=== PATIENT | female | born 1970 | race Caucasian/White ===

== ENCOUNTER 2016-12-01 17:16 | Inpatient (IN) | payer MEDICAID ==
[~2016-12-01] VITALS: Ht 134.6 cm; Wt 79.8 kg
[~2016-12-01 17:16] MED LIST: IOHEXOL-300 100 ML BOTTLE ONE; SODIUM CHLORIDE 0.9% 10ML VIAL ONE
[2016-12-01] MEDS ORDERED: MORPHINE SULFATE 4 MG/ML CPJ (NOT FOR IM USE) IV STA (17:36)
[2016-12-01] MEDS ORDERED: ONDANSETRON HCL 4MG/2ML VIAL IV STA (17:36)
[2016-12-01] MEDS ORDERED: METHYLPREDNISOLONE SOD SUCC 125 MG/2 ML VIAL IV STA (17:36)
[2016-12-01] MEDS ORDERED: SODIUM CHLORIDE 0.9% 1,000 ML IV ONE (17:36)
[2016-12-01] MEDS ORDERED: IPRATROPIUM BROMIDE (0.02%) 0.5MG/2.5ML NEB HHN STA (17:36)
[2016-12-01] MEDS ORDERED: ASPIRIN 81MG TABLET PO ONE (17:45)
[2016-12-01] MEDS ORDERED: MAGNESIUM 2 G PREMIX 50 ML IV ONE (17:45)
[2016-12-01] MEDS: ALBUTEROL (0.083%) 2.5MG/3ML NEB HHN SCH ×3 (17:50→19:00)
[2016-12-01] MEDS ORDERED: ALBUTEROL (0.5%) 2.5MG/0.5ML NEB HHN ONE (17:56)
[2016-12-01 18:16] LABS: BASOPHILS % 0.6 % (0.0-2.0); EOSINOPHILS % 0.2 % (0.0-5.0); HEMATOCRIT. 46.7 % (36.0-48.0); HEMOGLOBIN. 15.5 g/dL (12.0-16.0); LYMPHOCYTES % 36.4 % (20.0-50.0); MEAN CORPUSCULAR HEMOGLOBIN 28.3 pg (28.0-32.0); MEAN CORPUSCULAR HGB CONC 33.1 g/dL (31.0-37.0); MEAN CORPUSCULAR VOLUME 85.4 fL (81.0-99.0); MEAN PLATELET VOLUME 9.8 fl (7.4-10.4); MONOCYTES % 5.7 % (2.0-8.0); NEUTROPHILS % 57.1 % (40.0-76.0); PLATELET 242 x1000/uL (130-400); RED BLOOD CELL COUNT 5.46 mill/uL (4.2-5.4); RED CELL DISTRIBUTION WIDTH 15.9 % (11.6-14.6); WHITE BLOOD COUNT 10.2 x1000/uL (4.5-11.0)
[2016-12-01 18:17] LABS: CHLORIDE 107 mEq/L (98-107); INDEX HEMOLYSI 1 (1-3); INDEX ICTERIC 1 (1-4); INDEX LIPEMIC 1 (1-3)
[2016-12-01 18:19] LABS: ALBUMIN 3.3 g/dL (3.4-5.0); ANION GAP 15; CARBON DIOXIDE 23 mEq/L (21-32); LIPASE 109 IU/L (73-393); UREA NITROGEN BLOOD 15 mg/dL (7-21)
[2016-12-01 18:25] LABS: ALANINE AMINOTRANSFERASE 49 IU/L (13-61); eGFR > 60 mL/min (>60)
[2016-12-01 18:27] LABS: NT PRO B-TYPE NATRIURETIC PEP 5352 pg/mL (5-125); TROPONIN I 0.02 ng/mL (0.00-0.04)
[2016-12-01 18:53] LABS: INR 1.4; PARTIAL THROMBOPLASTIN TIME 23.1 sec (24.0-34.0); PROTHROMBIN TIME 14.8 sec
[2016-12-01 19:01] LABS: D-DIMER 15.83 mg/L FEU (<0.50)
[2016-12-01] MEDS ORDERED: SODIUM CHLORIDE 0.9% 1,000 ML IV NR (19:44)
[2016-12-01 22:00] VITALS: BP 96/64
[2016-12-02] VITALS: BP 91/56
[2016-12-02] MEDS ORDERED: CLONIDINE 0.1MG TABLET PO PRN
[2016-12-02] MEDS ORDERED: DOCUSATE SODIUM 100MG CAPSULE PO PRN
[2016-12-02] MEDS ORDERED: IPRATROPIUM/ALBUTEROL 0.5-3(2.5)MG/3ML NEB INH PRN
[2016-12-02] MEDS ORDERED: ONDANSETRON HCL 4MG/2ML VIAL IV PRN
[2016-12-02] MEDS: IPRATROPIUM/ALBUTEROL 0.5-3(2.5)MG/3ML NEB INH SCH ×4 (01:28→22:05)
[2016-12-02 04:00] VITALS: BP 108/64
[2016-12-02] MEDS: GUAIFENESIN 200MG/10ML SUGAR FREE UDC PO PRN ×2 (06:25→16:31)
[2016-12-02 06:26] LABS: BASOPHILS % 0.2 % (0.0-2.0); HEMATOCRIT. 42.5 % (36.0-48.0); HEMOGLOBIN. 14.1 g/dL (12.0-16.0); LYMPHOCYTES % 11.7 % (20.0-50.0); MEAN CORPUSCULAR HEMOGLOBIN 28.5 pg (28.0-32.0); MEAN CORPUSCULAR HGB CONC 33.1 g/dL (31.0-37.0); MEAN CORPUSCULAR VOLUME 86.2 fL (81.0-99.0); MONOCYTES % 1.5 % (2.0-8.0); NEUTROPHILS % 86.6 % (40.0-76.0); PLATELET 217 x1000/uL (130-400); RED BLOOD CELL COUNT 4.93 mill/uL (4.2-5.4); RED CELL DISTRIBUTION WIDTH 16.1 % (11.6-14.6); WHITE BLOOD COUNT 9.4 x1000/uL (4.5-11.0)
[2016-12-02 07:03] LABS: ALANINE AMINOTRANSFERASE 42 IU/L (13-61); ALBUMIN 2.8 g/dL (3.4-5.0); ANION GAP 13; CALCIUM 8.1 mg/dL (8.5-10.1); CARBON DIOXIDE 21 mEq/L (21-32); CHLORIDE 108 mEq/L (98-107); INDEX HEMOLYSI 1 (1-3); INDEX ICTERIC 1 (1-4); INDEX LIPEMIC 1 (1-3); TRIGLYCERIDE 78 mg/dL (0-150); UREA NITROGEN BLOOD 13 mg/dL (7-21); eGFR > 60 mL/min (>60)
[2016-12-02 07:06] LABS: CREATINE KINASE 77 IU/L (26-192); CREATINE KINASE MB FRACTION 1.8 ng/mL (0.5-3.6); HDL CHOLESTEROL 34 mg/dL (40-59); LDL CHOLESTEROL 77 mg/dL (5-100); TROPONIN I < 0.02 ng/mL (0.00-0.04)
[2016-12-02 07:58] VITALS: BP 104/80
[2016-12-02] MEDS: AMLODIPINE 10MG TABLET PO SCH (08:14)
[2016-12-02] MEDS: ASPIRIN 81MG EC TABLET PO SCH (08:15)
[2016-12-02] MEDS: ENOXAPARIN 40MG/0.4ML SYR SUBCUT SCH (08:16)
[2016-12-02 12:28] LABS: BG BASE EXCESS -4.5 mmol/L (-2.0-2.0); BG CARBOXYHEMOGLOBIN 0.9 % (0.5-1.5); BG DEOXYHEMOGLOBIN 4.1 % (0.0-5.0); BG FRACTION INSPIRED OXYGEN 34; BG HCO3 ACT 19.5 mmol/L (22.0-26.0); BG METHEMOGLOBIN 0.3 % (0.0-1.5); BG OXYGEN SATURATION 95.9 % (92.0-98.5); BG OXYHEMOGLOBIN 94.7 % (94.0-97.0); BG PH 7.389 (7.350-7.450); BG SAMPLE SITE RIGHT BRACHIAL; BG VENT MODE NASAL CANNULA
[2016-12-02 12:30] VITALS: BP 106/80
[2016-12-02] MEDS: FUROSEMIDE 20MG/2ML VIAL IVP SCH (14:46)
[2016-12-02] MEDS: SILDENAFIL CITRATE 20MG TABLET PO SCH ×2 (14:49→22:32)
[2016-12-02 15:14] LABS: CREATINE KINASE MB FRACTION 2.7 ng/mL (0.5-3.6); TROPONIN I 0.02 ng/mL (0.00-0.04)
[2016-12-02 16:30] VITALS: BP 110/82
[2016-12-02 16:55] LABS: CLARITY URINE CLEAR (CLEAR); COLOR URINE YELLOW (YELLOW); GLUCOSE URINE NEGATIVE (NEGATIVE); KETONES URINE NEGATIVE (NEGATIVE); LEUKOCYTE ESTERASE URINE NEGATIVE (NEGATIVE); NITRITE URINE NEGATIVE (NEGATIVE); OCCULT BLOOD URINE NEGATIVE (NEGATIVE); PROTEIN URINE 2+ (NEGATIVE); SPECIFIC GRAVITY URINE 1.021 (1.005-1.030)
[2016-12-02 17:14] LABS: BACTERIA URINE 1+; RBC URINE 0-2 /hpf (0-2); SQUAMOUS EPITHELIAL CELL URINE 1+ /lpf (RARE/1+); WBC URINE 0-2 /hpf (0-2)
[2016-12-02 17:23] LABS: *AMPHETAMINES SCREEN URINE NEGATIVE (NEGATIVE); *BARBITURATES SCREEN URINE NEGATIVE (NEGATIVE); *BENZODIAZEPINES SCREEN URINE NEGATIVE (NEGATIVE); *COCAINE SCREEN URINE NEGATIVE (NEGATIVE); CANNABINOID URINE SCREEN NEGATIVE (NEGATIVE); ECSTASY MDMA SCREEN URINE NEGATIVE (NEGATIVE); METHADONE URINE SCREEN NEGATIVE (NEGATIVE); PHENCYCLIDINE URINE SCREEN NEGATIVE (NEGATIVE)
[2016-12-02 17:30] LABS: OPIATES URINE SCREEN PRESUMTIVE POSITIVE (NEGATIVE)
[2016-12-02 20:00] VITALS: BP 132/87
[2016-12-02] MEDS: ACETAMINOPHEN 325MG TABLET PO PRN (22:33)
[2016-12-03] VITALS: BP 129/86
[2016-12-03] MEDS: IPRATROPIUM/ALBUTEROL 0.5-3(2.5)MG/3ML NEB INH SCH ×4 (02:06→21:06)
[2016-12-03 04:00] VITALS: BP 108/81
[2016-12-03 06:35] LABS: BASOPHILS % 0.1 % (0.0-2.0); EOSINOPHILS % 0.2 % (0.0-5.0); HEMATOCRIT. 40.9 % (36.0-48.0); HEMOGLOBIN. 13.4 g/dL (12.0-16.0); LYMPHOCYTES % 15.6 % (20.0-50.0); MEAN CORPUSCULAR HEMOGLOBIN 28.3 pg (28.0-32.0); MEAN CORPUSCULAR HGB CONC 32.7 g/dL (31.0-37.0); MEAN CORPUSCULAR VOLUME 86.6 fL (81.0-99.0); MEAN PLATELET VOLUME 10.3 fl (7.4-10.4); MONOCYTES % 9.3 % (2.0-8.0); NEUTROPHILS % 74.8 % (40.0-76.0); PLATELET 198 x1000/uL (130-400); RED BLOOD CELL COUNT 4.72 mill/uL (4.2-5.4); RED CELL DISTRIBUTION WIDTH 15.8 % (11.6-14.6); WHITE BLOOD COUNT 12.5 x1000/uL (4.5-11.0)
[2016-12-03] MEDS: SILDENAFIL CITRATE 20MG TABLET PO SCH ×3 (06:48→21:46)
[2016-12-03] MEDS: ACETAMINOPHEN 325MG TABLET PO PRN (06:49)
[2016-12-03 07:09] LABS: MAGNESIUM 2.2 mg/dL (1.8-2.4)
[2016-12-03 07:15] LABS: THYROID STIMULATING HORMONE 1.6 uIU/mL (0.36-3.74); TROPONIN I 0.04 ng/mL (0.00-0.04)
[2016-12-03 08:00] VITALS: BP 82/52
[2016-12-03] MEDS: AMLODIPINE 10MG TABLET PO SCH (09:00)
[2016-12-03] MEDS: FUROSEMIDE 20MG/2ML VIAL IVP SCH (09:00)
[2016-12-03] MEDS: ASPIRIN 81MG EC TABLET PO SCH (10:40)
[2016-12-03] MEDS: ENOXAPARIN 40MG/0.4ML SYR SUBCUT SCH (10:41)
[2016-12-03] MEDS ORDERED: SODIUM CHLORIDE 0.9% 250 ML IV ONE (11:45)
[2016-12-03 12:00] VITALS: BP 88/65
[2016-12-03] MEDS: LEVOFLOXACIN 750MG PREMIX 150 ML IV SCH (13:12)
[2016-12-03] MEDS: GUAIFENESIN 200MG/10ML SUGAR FREE UDC PO PRN (15:41)
[2016-12-03 16:00] VITALS: BP 86/57
[2016-12-03 20:00] VITALS: BP 90/60
[2016-12-04] VITALS: BP 108/70
[2016-12-04] MEDS: IPRATROPIUM/ALBUTEROL 0.5-3(2.5)MG/3ML NEB INH SCH ×2 (01:46→14:05)
[2016-12-04 04:00] VITALS: BP 107/74
[2016-12-04] MEDS: SILDENAFIL CITRATE 20MG TABLET PO SCH ×3 (06:00→14:00)
[2016-12-04 07:20] LABS: BASOPHILS % 0.2 % (0.0-2.0); EOSINOPHILS % 1.5 % (0.0-5.0); HEMATOCRIT. 41.7 % (36.0-48.0); HEMOGLOBIN. 13.6 g/dL (12.0-16.0); LYMPHOCYTES % 27.1 % (20.0-50.0); MEAN CORPUSCULAR HEMOGLOBIN 28.4 pg (28.0-32.0); MEAN CORPUSCULAR HGB CONC 32.5 g/dL (31.0-37.0); MEAN CORPUSCULAR VOLUME 87.1 fL (81.0-99.0); MEAN PLATELET VOLUME 10.1 fl (7.4-10.4); MONOCYTES % 9.1 % (2.0-8.0); NEUTROPHILS % 62.1 % (40.0-76.0); PLATELET 185 x1000/uL (130-400); RED BLOOD CELL COUNT 4.79 mill/uL (4.2-5.4); RED CELL DISTRIBUTION WIDTH 16.2 % (11.6-14.6); WHITE BLOOD COUNT 7.8 x1000/uL (4.5-11.0)
[2016-12-04 07:56] LABS: ALANINE AMINOTRANSFERASE 39 IU/L (13-61); ANION GAP 12; CALCIUM 8.6 mg/dL (8.5-10.1); CARBON DIOXIDE 29 mEq/L (21-32); CHLORIDE 103 mEq/L (98-107); INDEX HEMOLYSI 1 (1-3); INDEX ICTERIC 1 (1-4); INDEX LIPEMIC 1 (1-3); NT PRO B-TYPE NATRIURETIC PEP 1910 pg/mL (5-125); UREA NITROGEN BLOOD 16 mg/dL (7-21); eGFR > 60 mL/min (>60)
[2016-12-04 08:00] VITALS: BP 106/69
[2016-12-04] MEDS: ASPIRIN 81MG EC TABLET PO SCH (08:57)
[2016-12-04] MEDS: FUROSEMIDE 20MG/2ML VIAL IVP SCH (08:57)
[2016-12-04] MEDS: LEVOFLOXACIN 750MG PREMIX 150 ML IV SCH (08:59)
[2016-12-04] MEDS ORDERED: AMLODIPINE 10MG TABLET PO SCH (09:00)
[2016-12-04] MEDS: ENOXAPARIN 40MG/0.4ML SYR SUBCUT SCH (09:01)
[2016-12-04 12:30] VITALS: BP 106/70
[2016-12-04] MEDS ORDERED: AMLODIPINE 2.5MG TABLET PO SCH (13:44)
[2016-12-04 16:00] VITALS: BP 98/76
[2016-12-04 17:51] VITALS: BP 98/97
== END 2016-12-04 19:05 | disposition home or self-care (01) | DRG 194 ==
LOC: ER 17:18 → 6WST 21:22
PROVIDERS: ADMIT Hospitalist; ATTEND Hospitalist
PROC: 5A09357 Assistance with Respiratory Ventilation, Less than 24 Consecutive Hours, Continuous Positive Airway Pressure (ICD-10-PCS; principal; 2016-12-02)
DX: I11.0 Hypertensive heart disease with heart failure (principal); J96.00 Acute respiratory failure, unspecified whether with hypoxia or hypercapnia; J18.9 Pneumonia, unspecified organism; I95.9 Hypotension, unspecified; I27.2 Other secondary pulmonary hypertension; I27.81 Cor pulmonale (chronic); E46 Unspecified protein-calorie malnutrition; J45.901 Unspecified asthma with (acute) exacerbation; I50.9 Heart failure, unspecified; K80.20 Calculus of gallbladder without cholecystitis without obstruction; E66.01 Morbid (severe) obesity due to excess calories; G47.33 Obstructive sleep apnea (adult) (pediatric); I45.10 Unspecified right bundle-branch block; Z88.1 Allergy status to other antibiotic agents; Z68.41 Body mass index [BMI] 40.0-44.9, adult
CPT/HCPCS: 36415; 36600; 71010; 71275; 80053; 80061; 80305; 81001; 82375; 82550; 82553; 82805; 83690; 83735; 83880; 84443; 84484; 85025; 85379; 85610; 85730; 87804; 93005; 93306; 93970; 94640; 94660; 94664; 96365; 96375; 99285; A4216; C1893; J1650; J1940; J1956; J2270; J2405; J2930; J3475; J7030; J7050; J7611; J7620; Q9967

== ENCOUNTER 2018-03-10 17:49 | Inpatient (IN) | payer MEDICAID ==
[~2018-03-10] VITALS: Ht 134.6 cm; Wt 73.5 kg
[2018-03-10 19:30] LABS: BG BASE EXCESS 2.4 mmol/L (-2.0-2.0); BG BILEVEL POS AIRWAY PRESSURE 15/5; BG CARBOXYHEMOGLOBIN 0.5 % (0.5-1.5); BG DEOXYHEMOGLOBIN 17.8 % (0.0-5.0); BG FRACTION INSPIRED OXYGEN 100; BG HCO3 ACT 27.8 mmol/L (22.0-26.0); BG METHEMOGLOBIN 0.3 % (0.0-1.5); BG OXYGEN SATURATION 82.1 % (92.0-98.5); BG OXYHEMOGLOBIN 81.4 % (94.0-97.0); BG PCO2 46.4 mmHg (35.0-45.0); BG PH 7.396 (7.350-7.450); BG PO2 46.3 mmHg (75.0-100.0); BG SAMPLE SITE LEFT RADIAL; BG VENT MODE MASK - BIPAP; BG VENT RATE 14 set
[2018-03-10 19:32] LABS: BASOPHILS % 0.1 % (0.0-2.0); EOSINOPHILS % 1.4 % (0.0-5.0); HEMATOCRIT. 36.7 % (36.0-48.0); LYMPHOCYTES % 14.6 % (20.0-50.0); MEAN CORPUSCULAR HEMOGLOBIN 28.1 pg (28.0-32.0); MEAN CORPUSCULAR VOLUME 85.7 fL (81.0-99.0); MEAN PLATELET VOLUME 9.2 fl (7.4-10.4); MONOCYTES % 6.2 % (2.0-8.0); NEUTROPHILS % 77.7 % (40.0-76.0); PLATELET 216 x1000/uL (130-400); RED BLOOD CELL COUNT 4.29 mill/uL (4.2-5.4); RED CELL DISTRIBUTION WIDTH 17.6 % (11.6-14.6)
[2018-03-10 19:35] LABS: CHLORIDE 107 mEq/L (98-107)
[2018-03-10 19:39] LABS: INR 1.1
[2018-03-10] MEDS ORDERED: VANCOMYCIN 1 G PREMIX 200 ML IV SCH (20:15)
[2018-03-10] MEDS ORDERED: PIPERACILLIN/TAZOBACTAM 3.375GM/50ML PREMIX IV ONE (20:15)
[2018-03-10] MEDS ORDERED: FUROSEMIDE 20MG/2ML VIAL IVP SCH (20:30)
[2018-03-10] MEDS ORDERED: IPRATROPIUM/ALBUTEROL 0.5-3(2.5)MG/3ML NEB HHN ONE (20:30)
[2018-03-10] MEDS ORDERED: PIPERACILLIN/TAZ 3.375G PREMIX 50 ML IV NR (20:32)
[2018-03-10] MEDS ORDERED: POTASSIUM CHLORIDE INJ 40 MEQ in DEXT 5% WATER 500 ML IV ONE (22:00)
[2018-03-10 23:00] VITALS: BP 113/56
[2018-03-10] MEDS ORDERED: DOCUSATE SODIUM 100MG CAPSULE PO PRN (23:15)
[2018-03-10] MEDS ORDERED: ONDANSETRON HCL 4MG/2ML VIAL IV PRN (23:15)
[2018-03-10] MEDS ORDERED: HYDROCODONE/ACETAMINOPHEN 5/325MG TABLET PO PRN (23:15)
[2018-03-10] MEDS ORDERED: MAGNESIUM/ALUMINUM HYDROXIDE/SIMETHICONE 30ML UDC PO PRN (23:15)
[2018-03-11] VITALS (46 sets, daily range): BP systolic 90–132; BP diastolic 33–104
[2018-03-11] MEDS: IPRATROPIUM/ALBUTEROL 0.5-3(2.5)MG/3ML NEB INH PRN ×3 (04:42→16:45)
[2018-03-11] MEDS ORDERED: AMLO2.5T45 MT (05:26)
[2018-03-11] MEDS ORDERED: POTA10CA42 MT (05:26)
[2018-03-11] MEDS ORDERED: AMBR10TA3 PO (05:26)
[2018-03-11] MEDS ORDERED: BUME2TAB3 MT (05:26)
[2018-03-11] MEDS ORDERED: FLUT1DIS2 INH (05:26)
[2018-03-11] MEDS ORDERED: CITA20TA19 MT (05:26)
[2018-03-11] MEDS ORDERED: FURO20TA4 MT (05:26)
[2018-03-11] MEDS ORDERED: SILD20TA MT (05:26)
[2018-03-11 05:47] LABS: BASOPHILS % 0.2 % (0.0-2.0); EOSINOPHILS % 2.1 % (0.0-5.0); HEMATOCRIT. 35.4 % (36.0-48.0); HEMOGLOBIN. 11.5 g/dL (12.0-16.0); LYMPHOCYTES % 19.2 % (20.0-50.0); MEAN CORPUSCULAR VOLUME 86.5 fL (81.0-99.0); MEAN PLATELET VOLUME 9.3 fl (7.4-10.4); MONOCYTES % 8.2 % (2.0-8.0); NEUTROPHILS % 70.3 % (40.0-76.0); PLATELET 201 x1000/uL (130-400); RED BLOOD CELL COUNT 4.09 mill/uL (4.2-5.4); RED CELL DISTRIBUTION WIDTH 17.9 % (11.6-14.6)
[2018-03-11 05:56] LABS: CREATINE KINASE MB FRACTION 1.4 ng/mL (0.5-3.6)
[2018-03-11 06:20] LABS: CLARITY URINE CLEAR (CLEAR); COLOR URINE YELLOW (YELLOW); KETONES URINE NEGATIVE (NEGATIVE); LEUKOCYTE ESTERASE URINE TRACE (NEGATIVE); NITRITE URINE NEGATIVE (NEGATIVE); OCCULT BLOOD URINE NEGATIVE (NEGATIVE); PROTEIN URINE NEGATIVE (NEGATIVE); SPECIFIC GRAVITY URINE 1.011 (1.005-1.030); UROBILINOGEN URINE 0.2 E.U./dL (0.2-1.0)
[2018-03-11 08:23] LABS: *AMPHETAMINES SCREEN URINE NEGATIVE (NEGATIVE); *BARBITURATES SCREEN URINE NEGATIVE (NEGATIVE); *BENZODIAZEPINES SCREEN URINE NEGATIVE (NEGATIVE); *COCAINE SCREEN URINE NEGATIVE (NEGATIVE)
[2018-03-11 08:24] LABS: CANNABINOID URINE SCREEN NEGATIVE (NEGATIVE); OPIATES URINE SCREEN NEGATIVE (NEGATIVE); PHENCYCLIDINE URINE SCREEN NEGATIVE (NEGATIVE)
[2018-03-11 08:29] LABS: METHADONE URINE SCREEN NEGATIVE (NEGATIVE)
[2018-03-11 08:49] LABS: BG BASE EXCESS 1.5 mmol/L (-2.0-2.0); BG BILEVEL POS AIRWAY PRESSURE 15/5; BG CARBOXYHEMOGLOBIN 0.3 % (0.5-1.5); BG DEOXYHEMOGLOBIN 7.7 % (0.0-5.0); BG FRACTION INSPIRED OXYGEN 100; BG HCO3 ACT 28.3 mmol/L (22.0-26.0); BG METHEMOGLOBIN 0.2 % (0.0-1.5); BG OXYGEN SATURATION 92.3 % (92.0-98.5); BG OXYHEMOGLOBIN 91.8 % (94.0-97.0); BG PCO2 54.1 mmHg (35.0-45.0); BG PH 7.336 (7.350-7.450); BG PO2 66.9 mmHg (75.0-100.0); BG SAMPLE SITE LEFT BRACHIAL; BG TOTAL HEMOGLOBIN 12.3 g/dL (12.0-18.0); BG VENT MODE MASK - BIPAP; BG VENT RATE 14 set
[2018-03-11] MEDS ORDERED: FUROSEMIDE 40MG/4ML VIAL IV SCH (09:00)
[2018-03-11] MEDS: ENOXAPARIN 40MG/0.4ML SYR SUBCUT SCH (10:04)
[2018-03-11] MEDS ORDERED: POTASSIUM CHLORIDE 20MEQ TABLET SR PO NR (11:00)
[2018-03-11 11:12] LABS: BASOPHILS % 0.3 % (0.0-2.0); EOSINOPHILS % 1.7 % (0.0-5.0); HEMATOCRIT. 36.9 % (36.0-48.0); HEMOGLOBIN. 11.9 g/dL (12.0-16.0); LYMPHOCYTES % 17.5 % (20.0-50.0); MEAN CORPUSCULAR VOLUME 86.9 fL (81.0-99.0); MEAN PLATELET VOLUME 8.9 fl (7.4-10.4); MONOCYTES % 7.6 % (2.0-8.0); NEUTROPHILS % 72.9 % (40.0-76.0); PLATELET 190 x1000/uL (130-400); RED BLOOD CELL COUNT 4.25 mill/uL (4.2-5.4); RED CELL DISTRIBUTION WIDTH 17.8 % (11.6-14.6)
[2018-03-11] MEDS ORDERED: [UNRECOGNIZED DRUG - OTHER] XX SCH (11:15)
[2018-03-11] MEDS ORDERED: NS XX SCH (11:15)
[2018-03-11] MEDS: IPRATROPIUM/ALBUTEROL 0.5-3(2.5)MG/3ML NEB HHN SCH ×2 (12:18→20:09)
[2018-03-11] MEDS: BUDESONIDE 0.5MG/2ML NEB HHN SCH ×2 (12:18→20:09)
[2018-03-11] MEDS ORDERED: MAGNESIUM 1 G PREMIX 100 ML IV NR (14:30)
[2018-03-11 15:15] LABS: CREATINE KINASE 17 IU/L (26-192); CREATINE KINASE MB FRACTION < 1.0 ng/mL (0.5-3.6)
[2018-03-11] MEDS ORDERED: DIPHENOXYLATE/ATROPINE 2.5/0.025MG TABLET PO PRN (18:00)
[2018-03-12] VITALS (26 sets, daily range): BP systolic 92–127; BP diastolic 48–88
[2018-03-12] MEDS: IPRATROPIUM/ALBUTEROL 0.5-3(2.5)MG/3ML NEB HHN SCH ×4 (02:04→20:25)
[2018-03-12 05:12] LABS: BASOPHILS % 0.3 % (0.0-2.0); EOSINOPHILS % 2.9 % (0.0-5.0); HEMATOCRIT. 32.4 % (36.0-48.0); HEMOGLOBIN. 10.6 g/dL (12.0-16.0); LYMPHOCYTES % 21.7 % (20.0-50.0); MEAN CORPUSCULAR HEMOGLOBIN 28.5 pg (28.0-32.0); MEAN CORPUSCULAR VOLUME 86.9 fL (81.0-99.0); MEAN PLATELET VOLUME 9.1 fl (7.4-10.4); MONOCYTES % 8.9 % (2.0-8.0); NEUTROPHILS % 66.2 % (40.0-76.0); PLATELET 151 x1000/uL (130-400); RED BLOOD CELL COUNT 3.73 mill/uL (4.2-5.4)
[2018-03-12 05:13] LABS: CHLORIDE 107 mEq/L (98-107)
[2018-03-12 05:22] LABS: CREATINE KINASE 14 IU/L (26-192)
[2018-03-12 05:25] LABS: CREATINE KINASE MB FRACTION 1.1 ng/mL (0.5-3.6)
[2018-03-12] MEDS: BUDESONIDE 0.5MG/2ML NEB HHN SCH ×2 (07:25→20:25)
[2018-03-12] MEDS: FUROSEMIDE 40MG/4ML VIAL IV SCH (08:14)
[2018-03-12] MEDS: POTASSIUM CHLORIDE 20MEQ TABLET SR PO SCH (08:14)
[2018-03-12] MEDS: ENOXAPARIN 40MG/0.4ML SYR SUBCUT SCH (08:14)
[2018-03-12] MEDS: METHYLPREDNISOLONE SOD SUCC 40 MG/ML VIAL IV SCH (10:47)
[2018-03-12] MEDS: SILDENAFIL CITRATE 20MG TABLET PO SCH ×2 (14:33→21:00)
[2018-03-12] MEDS: ACETAMINOPHEN 325MG TABLET PO PRN (18:21)
[2018-03-13] VITALS: BP 109/67
[2018-03-13] MEDS: IPRATROPIUM/ALBUTEROL 0.5-3(2.5)MG/3ML NEB HHN SCH ×4 (01:10→21:26)
[2018-03-13 04:00] VITALS: BP 99/50
[2018-03-13] MEDS: SILDENAFIL CITRATE 20MG TABLET PO SCH ×3 (06:04→21:47)
[2018-03-13 06:14] LABS: BASOPHILS % 0.2 % (0.0-2.0); EOSINOPHILS % 0.4 % (0.0-5.0); HEMATOCRIT. 33.1 % (36.0-48.0); LYMPHOCYTES % 13.3 % (20.0-50.0); MEAN CORPUSCULAR VOLUME 86.9 fL (81.0-99.0); MEAN PLATELET VOLUME 9.3 fl (7.4-10.4); MONOCYTES % 8.5 % (2.0-8.0); NEUTROPHILS % 77.6 % (40.0-76.0); PLATELET 164 x1000/uL (130-400); RED BLOOD CELL COUNT 3.81 mill/uL (4.2-5.4); RED CELL DISTRIBUTION WIDTH 17.8 % (11.6-14.6)
[2018-03-13 06:38] LABS: PHOSPHORUS 3.9 mg/dL (2.5-4.9)
[2018-03-13] MEDS: ACETAMINOPHEN 325MG TABLET PO PRN ×2 (07:17→17:02)
[2018-03-13 08:00] VITALS: BP 110/62
[2018-03-13] MEDS: BUDESONIDE 0.5MG/2ML NEB HHN SCH (08:09)
[2018-03-13] MEDS: METHYLPREDNISOLONE SOD SUCC 40 MG/ML VIAL IV SCH (08:39)
[2018-03-13] MEDS: POTASSIUM CHLORIDE 20MEQ TABLET SR PO SCH (08:39)
[2018-03-13] MEDS: FUROSEMIDE 40MG/4ML VIAL IV SCH (08:39)
[2018-03-13] MEDS: ENOXAPARIN 40MG/0.4ML SYR SUBCUT SCH (08:41)
[2018-03-13 12:00] VITALS: BP 100/59
[2018-03-13 16:00] VITALS: BP 107/55
[2018-03-13 20:00] VITALS: BP 101/65
[2018-03-13] MEDS ORDERED: BUDESONIDE 0.5MG/2ML NEB HHN SCH (23:00)
[2018-03-14] VITALS: BP 101/52
[2018-03-14] MEDS: IPRATROPIUM/ALBUTEROL 0.5-3(2.5)MG/3ML NEB HHN SCH ×3 (02:13→14:37)
[2018-03-14 04:00] VITALS: BP 120/78
[2018-03-14] MEDS: SILDENAFIL CITRATE 20MG TABLET PO SCH ×2 (05:42→14:51)
[2018-03-14 08:00] VITALS: BP 92/56
[2018-03-14] MEDS ORDERED: PREDNISONE 20MG TABLET PO SCH (09:00)
[2018-03-14] MEDS: POTASSIUM CHLORIDE 20MEQ TABLET SR PO SCH (09:33)
[2018-03-14] MEDS: FUROSEMIDE 40MG/4ML VIAL IV SCH (09:33)
[2018-03-14] MEDS: ENOXAPARIN 40MG/0.4ML SYR SUBCUT SCH (09:33)
[2018-03-14 09:35] LABS: BASOPHILS % 0.2 % (0.0-2.0); EOSINOPHILS % 0.8 % (0.0-5.0); HEMATOCRIT. 35.5 % (36.0-48.0); HEMOGLOBIN. 11.6 g/dL (12.0-16.0); LYMPHOCYTES % 17.3 % (20.0-50.0); MEAN CORPUSCULAR HEMOGLOBIN 28.7 pg (28.0-32.0); MEAN CORPUSCULAR VOLUME 87.8 fL (81.0-99.0); MEAN PLATELET VOLUME 9.4 fl (7.4-10.4); MONOCYTES % 7.7 % (2.0-8.0); PLATELET 184 x1000/uL (130-400); RED BLOOD CELL COUNT 4.04 mill/uL (4.2-5.4); RED CELL DISTRIBUTION WIDTH 18.4 % (11.6-14.6)
[2018-03-14 10:07] LABS: CHLORIDE 104 mEq/L (98-107)
[2018-03-14 10:17] LABS: PHOSPHORUS 3.8 mg/dL (2.5-4.9)
[2018-03-14 12:00] VITALS: BP 109/66
[2018-03-14 15:28] VITALS: BP 109/66
[2018-03-14] MEDS: ACETAMINOPHEN 325MG TABLET PO PRN (18:56)
[2018-03-14 20:00] VITALS: BP 97/62
== END 2018-03-14 20:49 | disposition home or self-care (01) | DRG 194 ==
LOC: ER 18:01 → EDBEDREQSVC 18:57 → EDBEDREQ 18:57 → MICUSO 20:25 → EDBEDREQ 20:27 → EDBEDREQTM 20:27 → EDBEDREQSVC 20:27 → ENRESERV 20:41 → 5WST 03-12 11:10
PROVIDERS: ADMIT Internal Medicine; ATTEND Internal Medicine
PROC: 5A09457 Assistance with Respiratory Ventilation, 24-96 Consecutive Hours, Continuous Positive Airway Pressure (ICD-10-PCS; principal; 2018-03-10)
PROC: 5A09357 Assistance with Respiratory Ventilation, Less than 24 Consecutive Hours, Continuous Positive Airway Pressure (ICD-10-PCS; 2018-03-12)
PROC: 5A09357 Assistance with Respiratory Ventilation, Less than 24 Consecutive Hours, Continuous Positive Airway Pressure (ICD-10-PCS; 2018-03-13)
PROC: 5A09357 Assistance with Respiratory Ventilation, Less than 24 Consecutive Hours, Continuous Positive Airway Pressure (ICD-10-PCS; 2018-03-14)
DX: I11.0 Hypertensive heart disease with heart failure (principal); J96.20 Acute and chronic respiratory failure, unspecified whether with hypoxia or hypercapnia; N17.0 Acute kidney failure with tubular necrosis; I27.20 Pulmonary hypertension, unspecified; I27.81 Cor pulmonale (chronic); Z68.41 Body mass index [BMI] 40.0-44.9, adult; Z99.81 Dependence on supplemental oxygen; I50.33 Acute on chronic diastolic (congestive) heart failure; E83.42 Hypomagnesemia; E87.6 Hypokalemia; J45.909 Unspecified asthma, uncomplicated; G47.33 Obstructive sleep apnea (adult) (pediatric); E66.9 Obesity, unspecified; I45.10 Unspecified right bundle-branch block; R19.7 Diarrhea, unspecified; Z79.899 Other long term (current) drug therapy; Z88.8 Allergy status to other drugs, medicaments and biological substances
CPT/HCPCS: 36415; 36600; 71045; 80048; 80053; 80061; 80305; 81003; 82375; 82550; 82553; 82805; 83605; 83735; 83880; 84100; 84443; 84484; 85025; 85379; 85610; 87015; 87040; 87045; 87086; 87427; 87449; 87493; 93005; 93306; 93970; 94640; 94660; 96365; 96368; 96375; 99291; J1650; J1940; J2405; J2543; J2920; J3370; J3475; J3480; J7030; J7050; J7060; J7512; J7620; J7626